=== PATIENT | female | born 1940 | race African-American/Black ===

== ENCOUNTER 2018-10-22 16:31 | Inpatient (IN) ==
[2018-10-22] MEDS ORDERED: NS 1,000 ML IV ONE ×2 (17:39→18:58)
--- NOTE | 2018-10-22 18:01 | Diag Imaging Result Doc PS360 ---
EXAM: CHEST-PORTABLE INDICATION: gi bleed TECHNIQUE: One view COMPARISON: 12/15/2016 FINDINGS: There is evidence of prior granulomatous disease, stable. The lungs are grossly clear. There is no discrete pleural fluid collection or pneumothorax. The cardiomediastinal silhouette and central vasculature are grossly unremarkable. IMPRESSION: No evidence of acute pathology by plain radiograph. Electronically signed by Douglas Victoria 10/22/2018 5:59 PM
[2018-10-22] MEDS ORDERED: PROTONIX 80 MG in NS 80 ML IV ONE (18:02)
[2018-10-22 18:13] LABS: INR 1.02; PROTIME 14.2 Seconds (11.0-16.0)
[2018-10-22 18:14] LABS: PTT 28.4 Seconds (22.3-41.8)
[2018-10-22 18:18] LABS: BASO# 0.02 X1000 (0.0-0.2); BASO% 0.2 % (0.0-0.8); EOS% 0.9 % (0.0-10.0); HEMATOCRIT 31.8 % (37.0-47.0); HEMOGLOBIN 10.3 g/dL (12.0-16.0); IMM GRAN# 0.03 X1000 (0.0-0.04); IMM GRAN% 0.3 % (0.0-0.5); LYMPH# 4.82 X1000 (1.2-3.4); LYMPH% 45.3 % (20.5-51.1); MCH 31.8 PG (27-31); MCHC 32.4 g/dL (33-37); MCV 98.1 FL (81-99); MONO# 0.79 X1000 (0.11-0.59); MONO% 7.4 % (1.7-9.3); MPV 10.7 FL (7.4-10.4); NEUT# 4.88 X1000 (1.4-6.5); NEUT% 45.9 % (42.2-75.2); PLT 239 X1000 (130-400); RBC 3.24 XMIL (4.2-5.4); RDW 13.2 % (11.5-14.5); WBC 10.64 X1000 (4.8-10.8)
[2018-10-22 18:29] LABS: AGAP 12; ALB/GLOB RATIO 1.5; ALBUMIN 4.4 g/dL (3.5-5.0); ALKALINE PHOSPHATASE 58 U/L (32-104); BUN 25 mg/dL (8-22); CHLORIDE 106 mmol/L (98-107); COSMO 290; CREATININE 0.9 mg/dL (0.5-0.9); ESTIMATED GFR > 60; GLUCOSE 108 mg/dL (70-104); GOT 15 U/L (10-30); GPT 12 U/L (10-36); POTASSIUM 3.7 mmol/L (3.5-5.1); SODIUM 143 mmol/L (136-145); TCO2 25 mmol/L (25-35); TOTAL BILIRUBIN 0.26 mg/dL (0.20-1.00); TOTAL PROTEIN 7.3 g/dL (6.3-8.3)
[2018-10-22] MEDS ORDERED: MORPHINE IV PRN (18:58)
[2018-10-22] MEDS ORDERED: ZOFRAN IV PRN (18:58)
--- NOTE | 2018-10-22 18:58 | PROVIDER DOCUMENTATION ---
This chart was entered by Becca Garcia Scribe, acting as scribe for Emeterio Lazar MD. HPI-General Adult - General Chief Complaint: GI Bleed Stated Complaint: VOMITING DR Kalpana PA Time Seen by Provider: 10/22/18 17:36 Source: patient Allergies/Adverse Reactions: Patient Allergies Allergy/AdvReac Type Severity Reaction Status Date / Time codeine AdvReac Intermediate NAUSEA Verified 10/22/18 17:52 Home Medications: Home Medication List Medication Instructions Recorded Confirmed Last Taken Type Pantoprazole [Protonix] 1 tab PO DAILY 12/14/16 12/14/16 12/14/16 History Diphenhyramine/Al&mg Oh/Lido [Mbx 10 ml MT 4XDAY PRN PRN #1 bottle 12/15/16 U nknown Rx Solution] Docusate Sodium [Colace] 100 mg PO BID PRN PRN #20 capsule 12/15/16 Unknown Rx - History of Present Illness -Gen Adult Nature of Presenting Problems: pt is a 78 yr old female presenting with complaint of nausea and vomiting beg inning 1 hr after eating chicken yesterday, pt reports she took a large amount of pepto bismal to help the nausea then had a large black diarrhea stool yesterday and then again today. pt denies any abdominal pain, pt reports hx of peptic ulcer disease and fears she is passing blood in her stool. pt also reports mild cough. Location of Pain/Injury: reports: none Pain Radiation: reports: no radiation Quality of Pain: reports: none Severity: reports: mild Onset/Duration: reports: 24 hours ago Timing: reports: still present Context/Activities at Onset: reports: eating (1 hr after ingesting chicken) Modifying Factors: improves with: other medication (pepto bismal) Associated Symptoms: reports: cough, diarrhea, headaches, nausea, vomiting. denies: dizziness, fever/chills Similar Symptoms Previously?: No Recently seen or treated by another doctor?: No Review of Systems - Adult - REVIEW OF SYSTEMS - ADULT Constitutional: denies: chills, fever Eyes: denies: blurred vision, double vision Ears, Nose, Mouth & Throat: reports: no symptoms reported Cardiovascular: denies: chest pain, palpitations, syncope Respiratory: reports: cough. denies: shortness of breath, wheezing Gastrointestinal: reports: diarrhea, nausea, vomiting, other (black diarrhea). denies: abdominal pain Genitourinary: reports: no symptoms reported Musculoskeletal: reports: no symptoms reported Integumentary: reports: no symptoms reported Neurological: denies: dizziness/vertigo, headache/migraines Psychiatric: reports: no symptoms reported Endocrine: reports: no symptoms reported Hematologic/Lymphatic: reports: no symptoms reported Allergic/Immunologic: reports: no symptoms reported All Other Systems: Reviewed and Negative Past History - Adult - PAST MEDICAL HISTORY-ADULT Review of Records: reports: Old Records Reviewed, Nursing Assessment Review, Medications Reviewed, Social history reviewed & non-contributory. Major Childhood Illnesses: reports: denies history Cardiovascular: reports: denies history Respiratory: reports: denies history Gastrointestinal: reports: GERD Obstetrical/Gynecological: reports: denies history Genitourinary: reports: denies history Musculoskeletal: reports: arthritis Neurological: reports: denies history Endocrine/Immune: reports: denies history Other Conditions: reports: denies history - PRIOR SURGERIES/PROCEDURES Surgical/Procedure History: reports: none - PRIOR HOSPITALIZATIONS Prior Hospitalizations: reports: none - IMMUNIZATION STATUS Childhood Immunizations: See Nurse Assessment Flu Vaccine: See Nurse Assessment - FAMILY HISTORY Family History: reviewed, not pertinent - SOCIAL HISTORY Smoking: denies Substance Use: alcohol Alcohol Use Frequency: occasionally Living Situation: family Physical Exam-General - PHYSICAL EXAM-ADULT Initial Vital Signs Reviewed: Yes - CONSTITUTIONAL General Appearance: appears well, alert, no apparent distress - EYES Eyes: other (arcus senills) - HEAD, EARS, NOSE, MOUTH & THROAT HENMT: normocephalic/atraumatic. negative: moist mucous membranes (dry oral mucosa) - NECK Neck: non-tender, full range of motion, supple, normal inspection - RESPIRATORY Respiratory: chest non-tender, lungs clear, normal breath sounds - CARDIOVASCULAR Cardiovascular: normal peripheral pulses, tachycardia - GASTROINTESTINAL (ABDOMEN) Abdominal Exam: normal bowel sounds, non tender, soft - GENITOURINARY Rectal Exam: normal exam, normal rectal tone. negative: black stool, blood streaked stool, hemorrhoids, tenderness - LYMPHATIC Lymphatic: no adenopathy - MUSCULOSKELETAL Back Exam: normal inspection, no CVA tenderness, no vertebral tenderness Extremity: normal range of motion, non-tender, normal gait, normal inspection - SKIN Integumentary: normal color, normal turgor, warm/dry - NEUROLOGIC Neurologic: grossly normal, no motor/sensory deficits - PSYCHIATRIC Psych/Mental Status: normal mood/affect Progress - PLAN OF CARE/RESULTS Progress/Plan/Lab Results: Vital Signs - 8 hr 10/22/18 16:35 Temperature 98.0 F Pulse Rate 112 H Respiratory Rate 18 Blood Pressure 102/62 O2 Sat by Pulse Oximetry 95 Laboratory Results - last 24 hr 10/22/18 16:55 PT 14.2 INR 1.02 PTT (Actin FS) 28.4 Orders Category Date Time Status Cardiac Monitoring DIRECTED Care 10/22/18 17:37 Active Nursing- Obtain EKG once Care 10/22/18 17:37 Active Saline Loc NOW Care 10/22/18 17:37 Active CHEST-PORTABLE [RAD] Stat Exams 10/22/18 17:39 Completed CBC WITH ELECTRONIC DIFF [HEME] Stat Lab 10/22/18 16:55 Results COMPREHENSIVE METABOLIC PANEL [CHEM] Stat Lab 10/22/18 16:55 Received LACTATE, PLASMA [CHEM] Stat Lab 10/22/18 17:38 Uncollected OCCULT BLOOD SCREENING [STOOL] Stat Lab 10/22/18 17:38 Uncollected PROTIME WITH INR [COAG] Stat Lab 10/22/18 16:55 Completed PTT [COAG] Stat Lab 10/22/18 16:55 Completed TYPE & SCREEN [BBK] Stat Lab 10/22/18 16:55 Received URINALYSIS W/POSS RFLX CULT [URINALYSIS] Stat Lab 10/22/18 17:38 Uncollected 0.9% Sodium Chloride Inj [Ns] 1,000 ml Med 10/22/18 17:39 Active IV 999 mls/hr Pantoprazole [Protonix] 80 mg Med 10/22/18 18:02 Active 0.9% Sodium Chloride Inj [Ns] 80 ml IV NOW EKG [EKG] Stat Ther 10/22/18 17:38 Ordered Result Diagrams: 10/22/18 16:55 10/22/18 16:55 - EKG 1 Time of EKG reading by physician:: 16:58 EKG Read and Signed by:: Emeterio Lazar EKG Interpretation (*Must complete 3 of following elements*): Abnormal (early transitions) Rate: 101 Rhythm: sinus tachycardia - XRAY 1 XRAY Study: Chest Impression: Abnormal ( Signed EXAM: CHEST-PORTABLE INDICATION: gi bleed TECHNIQUE: One view COMPARISON: 12/15/2016 FINDINGS: There is evidence of prior granulomatous disease, stable. The lungs are grossly clear. There is no discrete pleural fluid collection or pneumothorax. The cardiomediastinal silhouette and central vasculature are grossly unremarkable. IMPRESSION: No evidence of acute pathology by plain radiograph. Electronically signed by Douglas Victoria 10/22/2018 5:59 PM 10/22/181758 Interpreting Physician: Douglas Victoria MD Dictated Date/Time: 10/22/181758 cc: Emeterio Lazar MD; Eugene Bryan MD) Comparison with other Films: no changes (12/15/16) - CONSULTS/PCP/HOSPITALIST Notification #1 *Consult/PCP/Hospitalist*: [place] Time Discussed: 18:57 Consult Disposition: Will see in ED Departure - Departure Date of Disposition Decision: 10/22/18 Time of Disposition Decision: 18:57 DIAGNOSIS: Anemia due to blood loss, acute GI bleeding Qualifiers: GI bleed type/associated pathology: melena Qualified Code(s): K92.1 - Melena Disposition: ADMITTED INPATIENT 09 Certified Medical Emergency: Emergent Condition: Fair Referrals and Follow-Ups: Eugene Bryan MD [Primary Care Provider] - - Critical Care Note This patient required my direct & personal management of CC.: No Attestation - Physician/ [place] Attestation Patient care was provided by Advanced Practice Provider:: No The physician spent face to face time with patient:: Yes Advanced Practice Provider documentation review:: Supervising physician onsite and consulted in the evaluation and care of this patient. The physician did have a face to face encounter with the patient. This chart was documented by the indicated scribe, (Becca Garcia Scribe) and accurately reflects the services I performed and decisions made by me, Emeterio Lazar MD, as attested by the provider's signature.
[2018-10-22 20:43] LABS: URINE SOURCE CLEAN CATCH
[2018-10-22 20:47] LABS: BILIRUBIN URINE NEGATIVE (NEGATIVE); BLOOD URINE NEGATIVE (NEGATIVE); COLOR YELLOW; GLUCOSE URINE NEGATIVE (NEGATIVE); KETONE URINE NEGATIVE (NEGATIVE); LEUKOCYTES URINE MODERATE (NEGATIVE); NITRITE URINE NEGATIVE (NEGATIVE); PH URINE 5.5; PROTEIN URINE NEGATIVE (NEGATIVE); TURBIDITY URINE CLEAR (CLEAR); UROBILINOGEN URINE NORMAL (NORMAL)
[2018-10-22 20:49] LABS: UR EPITHELIAL CELLS <10 /HPF (<10); URINE BACTERIA NEGATIVE /HPF; URINE RBC <10 /HPF (<10); URINE WBC <10 /HPF (<10)
--- NOTE | 2018-10-22 21:31 | HISTORY AND PHYSICAL ---
Admitting to Dr. Eugene Bryan. CHIEF COMPLAINT: Threw up some tea colored vomitus and then had black bowel movements. HISTORY OF PRESENT ILLNESS: The patient is an 78-year-old, female, who apparently had some chicken last night, and threw up. She had also had some Pepto Bismol. When she threw up, there was some brownish looking material that she called tea-colored and thought it might be from tea that she was drinking. She later had some black tarry stools and came to the emergency room. She has not had any abdominal pain with this. She does take occasional over the counter NSAIDs and is supposed to be taking a proton pump inhibitor but does not always take it. When the emergency room doctor looked at her, he noticed black stools, but noted some red blood with it. I did another rectal exam. Did not get much stool back, but got just a little bit and we will send that for Hemoccult testing. PAST MEDICAL HISTORY: Patient has had surgery for tonsillectomy. She has had a hysterectomy. She denies any allergies. She has 9 children. One daughter had breast cancer. One son had some sort of GI cancer that she does not know all the details with. Apparently codeine causes nausea for her. She denies being anemic in the past. REVIEW OF SYSTEMS: Neurological: Denies headaches, seizures, visual problems, hearing problems. Pulmonary: Denies cough, wheezing, dyspnea. Cardiovascular: Denies chest pain, heart palpitations, PND, orthopnea. GI: See present illness. Has thrown up some tea colored, which may be the same as coffee-ground material and then had some black tarry stools. Denies any abdominal pain. Actually had some of these black stools last night. Endocrine: Denies diabetes, thyroid problems or pituitary problems. Psychiatric: The patient has been very anxious. She has been upset about some of her neighbors and neighbor that brings her dog over to her yard and that has been disconcerting for her. Musculoskeletal: She does possibly have a little arthritis. Does take some [id number] NSAIDs on occasion. PHYSICAL EXAMINATION: VITAL SIGNS: Temperature is 98 degrees Fahrenheit. Pulse 112 and regular. Respirations 18, blood pressure 102/62. HEENT: She is normocephalic. EOMS intact. PERRLA. Throat clear. Fundi benign. NECK: Supple without thyromegaly, without adenopathy or carotid bruits. LUNGS: Sound clear to auscultation and percussion without rhonchi, rales, or wheezes. HEART: Sinus tachycardia without murmurs, gallops, or friction rubs. ABDOMEN: Soft with active bowel sounds. No organomegaly or tenderness. PELVIC: Exam deferred. BREAST EXAM: Deferred. RECTAL EXAM: Got very little stool. Did not see any black when I did this. It was brownish- greenish in very small amounts. Did put this on Hemoccult card and have sent it to lab. LABORATORY: Shows a white count 10,640, hemoglobin 10.3, hematocrit 31.8. Chemistry profile is essentially normal. Occult blood was positive. Chest x-ray showed no acute findings. ASSESSMENT: 1. Probable upper gastrointestinal bleed. 2. Anemia. PLAN: We will treat with proton pump inhibitors. At this time, we will hold off doing an NG-tube as she seems to be comfortable. Will consult GI. cc: MD Eugene Gomez Jr, MD
[2018-10-23 02:10] LABS: HEMATOCRIT 25.8 % (37.0-47.0); HEMOGLOBIN 8.2 g/dL (12.0-16.0)
[2018-10-23 06:37] LABS: AGAP 9; BUN 13 mg/dL (8-22); CALCIUM 9.4 mg/dL (8.8-10.2); CHLORIDE 112 mmol/L (98-107); COSMO 287; CREATININE 0.6 mg/dL (0.5-0.9); ESTIMATED GFR > 60; GLUCOSE 93 mg/dL (70-104); POTASSIUM 3.8 mmol/L (3.5-5.1); SODIUM 144 mmol/L (136-145); TCO2 23 mmol/L (25-35)
--- NOTE | 2018-10-23 06:51 | PROGRESS NOTE ---
DATE: 10/23/2018 An 78-year-old, patient admitted with hematemesis and melanotic stool. There was also some fresh blood in the stool. The patient had mild epigastric discomfort. The patient claims her symptoms started after she ate some chicken. No major abdominal pain. No high-grade fever. The patient did have some chills. Since admission, the patient denied any nausea or vomiting. No bleeding per rectum. Denied any typical chest pain or palpitation. No dysuria or hematuria. The patient does have arthritic pain in her knee. No unusual cough or expectoration. Denied any leg swelling. Admission history physical noted. PAST MEDICAL HISTORY: Significant for gastritis and reflux disease, osteoarthritis, hypercalcemia, hyperparathyroidism. PHYSICAL EXAMINATION: Vital Signs: Blood pressure 108/54, pulse 94, respiration 18, temperature 97.9 degrees. Skin: Senile turgor. Neck: Supple. No JVD. Lungs: Bilateral good air entry present. No rales. Cardiovascular: S1 and S2 heard. No gallop or thrill. Abdomen: Soft. No distention. Bowel sounds present. Extremities: No cyanosis, clubbing. No acute DVT. ELECTRONIC INSTRUMENT TRADES WORKER: Alert, awake able to move all 4 limbs. LAB DATA: Done on admission noted. Her repeat hemoglobin 8.2 hematocrit 25.8. The a.m. lab is pending. Urinalysis did reveal moderate leukocyte. Urine culture is pending. CONSIDERATION: GI bleed most likely due to gastritis, and reflux disease. Possibility of diverticulosis cannot be ruled out. Osteoarthritis, questionable UTI. The patient does have hyperparathyroidism. PLAN: Continue proton pump inhibitor. Patient will have GI evaluation. We will follow a.m. labs. Monitor hemoglobin and hematocrit. Symptomatic treatment. Overall plan discussed with the patient and family. They are in agreement. cc: Eugene Bryan MD
[2018-10-23 06:53] LABS: BASO# 0.03 X1000 (0.0-0.2); BASO% 0.3 % (0.0-0.8); EOS# 0.23 X1000 (0.0-0.7); EOS% 2.3 % (0.0-10.0); HEMATOCRIT 25.7 % (37.0-47.0); IMM GRAN# 0.02 X1000 (0.0-0.04); IMM GRAN% 0.2 % (0.0-0.5); LYMPH# 4.19 X1000 (1.2-3.4); LYMPH% 42.7 % (20.5-51.1); MCH 31.1 PG (27-31); MCHC 31.1 g/dL (33-37); MONO# 0.68 X1000 (0.11-0.59); MONO% 6.9 % (1.7-9.3); MPV 10.1 FL (7.4-10.4); NEUT# 4.67 X1000 (1.4-6.5); NEUT% 47.6 % (42.2-75.2); PLT 185 X1000 (130-400); RBC 2.57 XMIL (4.2-5.4); RDW 13.2 % (11.5-14.5); WBC 9.82 X1000 (4.8-10.8)
[2018-10-23 08:17] LABS: HEMATOCRIT 26.3 % (37.0-47.0); HEMOGLOBIN 8.2 g/dL (12.0-16.0)
--- NOTE | 2018-10-23 08:21 | EKG Report ---
Test Performed on : 10/22/2018 4:44:41 PM Test Reason : tachycardic Blood Pressure : / mmHG Vent. Rate : 101 BPM Atrial Rate : 101 BPM P-R Int : 152 ms QRS Dur : 084 ms QT Int : 336 ms P-R-T Axes : 055 020 071 degrees QTc Int : 435 ms Sinus tachycardia. Otherwise normal ECG When compared with ECG of 28-MAY-2016 23:00, No significant change was found Unconfirmed Result
[2018-10-23 14:23] LABS: HEMATOCRIT 27.5 % (37.0-47.0); HEMOGLOBIN 8.6 g/dL (12.0-16.0)
--- NOTE | 2018-10-23 15:13 | GASTROENTEROLOGY CONSULTATION ---
DATE: 10/23/2018 REASON FOR CONSULTATION: Melena, hematemesis. HISTORY OF PRESENT ILLNESS: The patient reports onset of symptoms on Sunday. She states she had episode of nausea and vomiting that was black in color after eating some chicken. She denied any significant abdominal pain. No reported fever. She did report some mild chills. She had actually brought in a sample of what she had vomited in a plastic bag with a wash rag, and it was black in color. Per our records, she was last seen in 2017. She had an EGD and colonoscopy on 12/26/2017 that showed diverticulosis with no colon polyps, reflux esophagitis, or gastritis. PAST MEDICAL HISTORY: GERD, osteoarthritis, hyperparathyroidism, hypercalcemia. PAST SURGICAL HISTORY: Appendectomy, cholecystectomy, hysterectomy, EGD and colonoscopy in 12/2017. ALLERGIES: Codeine causing nausea. HOME MEDICATIONS: MBX solution 4 times a day as needed, Colace 100 mg twice a day as needed, Protonix daily which she states she does not take on a daily basis. SOCIAL HISTORY: No reported tobacco use. At the time of our evaluation in 2017, she would drink wine or beer on occasion. She is . She has 9 children. REVIEW OF SYSTEMS: Per history of present illness. PHYSICAL EXAMINATION: Vital Signs: Temperature 97.6 degrees, pulse 77, respirations 18, blood pressure 132/61. General: The patient is awake, alert, in no acute distress. Respiratory: Lung sounds are clear bilaterally. Cardiovascular: Regular rate and rhythm. Abdomen: Soft. Positive bowel sounds. Nontender. Neurological: Cranial nerves II through XII grossly intact. The patient is awake, alert, and oriented to person, place, and time. Extremities: No lower extremity edema noted. She has SCD hose in place. LABORATORY DATA: Hematology: WBC 9.82, hemoglobin 8.0, hematocrit 25.7, MCV 100.0, platelet 185,000. Coagulation: ProTime 14.2, INR 1.02, PTT 28.4. Chemistry: Sodium 144, potassium 3.8, chloride 112, CO2 of 23, BUN 13, creatinine 0.6, glucose 93. Total bilirubin 0.26, AST 15, ALT 12, alkaline phosphatase 58. IMAGING: Chest x-ray showed no evidence of acute pathology. ASSESSMENT: 1. Melena. 2. Hematemesis. 3. History of gastroesophageal reflux disease. 4. History of nonsteroidal anti-inflammatory drug use. 5. Diverticulosis with last colonoscopy in 12/2017, last esophagogastroduodenoscopy showing esophagitis and gastritis in 12/2017. PLAN: Continue PPI. Will plan to proceed with EGD today since she has been held n.p.o. Due to the patient's age, I have given her the option of symptomatic treatment and watching. She wishes to proceed with EGD procedure. I have discussed benefits versus risks of the procedure. Further plans to be made according to findings. I have discussed this case with Dr. Lezama. Thank you for this consultation. Dictated by SILAS Navarro for Familia Lezama MD cc: SILAS Galeas MD Bharat K. Vakharia, MD [facility] HOSPITALHelen
[2018-10-23] MEDS ORDERED: DIPRIVAN 1% ONE (16:25)
[2018-10-23] MEDS ORDERED: XYLOCAINE-MPF 2% ONE (16:26)
[2018-10-23] MEDS ORDERED: BLISTEX MEDICATED BERRY LIP BALM TOP PRN (17:37)
[2018-10-23] MEDS: ZOFRAN PO SCH (19:44)
--- NOTE | 2018-10-23 19:58 | OPERATIVE NOTE ---
PROCEDURE DATE: 10/23/2018 PROCEDURE: Esophagogastroduodenoscopy. PREOPERATIVE DIAGNOSES: 1. Acute gastrointestinal bleed. 2. Anemia secondary to gastrointestinal bleed. POSTOPERATIVE DIAGNOSES: 1. Esophageal ulcer. 2. Mild gastritis. HISTORY: This is an 78-year-old female admitted to the hospital with history of upper GI bleed. She was found to be anemic. EGD was done for diagnostic as well as therapeutic purposes. DESCRIPTION OF PROCEDURE: Informed consent was obtained from the patient. The procedure, risks, benefits and alternatives were explained in layman's terms she understood. All the pertinent questions were answered. The patient was brought to the endoscopy unit and was premedicated as per Anesthesia. After adequate sedation, while she was lying in left lateral position, the gastroscope was introduced into the posterior pharynx and advanced under direct vision into the esophagus. The esophagus in the upper and middle part was normal. Distal esophagus, right around GE junction which was noted about 39 cm from the incisors, there was a linear ulcer noted with whitish exudate adherent to it, suggestive of recent ulceration or Sadia-Francisco tear which appears to be healing. No active bleeding or stigmata of recent bleed seen. The scope was then passed through the esophagus into the stomach. The stomach was examined with both straight and retroflex view, which revealed normal cardia, fundus and body. In the antrum, mild hyperemia noted in patches suggestive of gastritis, but no active bleeding or stigmata of recent bleed seen. Otherwise, no ulceration, AVM or masses were seen. The scope was then passed through a normal pylorus into the duodenal bulb, and then to the second portion of the duodenum, which appeared to be normal. The scope was then removed. The patient tolerated the procedure well. No complications noted. The patient was then transferred to the recovery area in a stable condition. IMPRESSION: 1. Esophageal ulcer, most likely the source of her bleeding. Appears to be compatible with a Sadia-Francisco tear, which is healing. 2. Mild gastritis. RECOMMENDATIONS: The patient would benefit from proton pump inhibitor. I would start her on Protonix 40 mg every day. In the meantime, recheck hemoglobin and hematocrit, transfuse if necessary. We will start her on full liquid diet, advance as tolerated. cc: MD Eugene Thomson MD
[2018-10-23 20:27] LABS: HEMATOCRIT 26.6 % (37.0-47.0); HEMOGLOBIN 8.3 g/dL (12.0-16.0)
[2018-10-24 02:36] LABS: HEMATOCRIT 27.5 % (37.0-47.0); HEMOGLOBIN 8.7 g/dL (12.0-16.0)
[2018-10-24] MEDS: ZOFRAN PO SCH (04:32)
[2018-10-24 06:55] LABS: BASO# 0.02 X1000 (0.0-0.2); BASO% 0.3 % (0.0-0.8); EOS# 0.27 X1000 (0.0-0.7); EOS% 3.9 % (0.0-10.0); HEMATOCRIT 28.6 % (37.0-47.0); LYMPH# 3.34 X1000 (1.2-3.4); LYMPH% 47.8 % (20.5-51.1); MCH 31.6 PG (27-31); MCHC 31.5 g/dL (33-37); MCV 100.4 FL (81-99); MONO# 0.61 X1000 (0.11-0.59); MONO% 8.7 % (1.7-9.3); MPV 10.9 FL (7.4-10.4); NEUT# 2.75 X1000 (1.4-6.5); NEUT% 39.3 % (42.2-75.2); PLT 176 X1000 (130-400); RBC 2.85 XMIL (4.2-5.4); RDW 12.8 % (11.5-14.5); WBC 6.99 X1000 (4.8-10.8)
[2018-10-24] MEDS ORDERED: PROTONIX PO SCH (07:00)
[2018-10-24 07:14] LABS: HEMOGLOBIN A1C 4.9 % (4.8-6.0)
[2018-10-24 07:27] LABS: AGAP 11; ALB/GLOB RATIO 1.3; ALBUMIN 3.7 g/dL (3.5-5.0); ALKALINE PHOSPHATASE 54 U/L (32-104); BUN 7 mg/dL (8-22); CALCIUM 10.1 mg/dL (8.8-10.2); CHLORIDE 107 mmol/L (98-107); COSMO 277; CREATININE 0.7 mg/dL (0.5-0.9); ESTIMATED GFR > 60; GLUCOSE 83 mg/dL (70-104); GOT 16 U/L (10-30); GPT 9 U/L (10-36); MAGNESIUM 1.9 mg/dL (1.5-2.7); POTASSIUM 3.9 mmol/L (3.5-5.1); SODIUM 140 mmol/L (136-145); TCO2 22 mmol/L (25-35); TOTAL BILIRUBIN 0.34 mg/dL (0.20-1.00); TOTAL PROTEIN 6.6 g/dL (6.3-8.3)
--- NOTE | 2018-10-24 07:27 | DISCHARGE SUMMARY ---
ADMISSION DATE: 10/22/2018 DISCHARGE DATE: FINAL DISCHARGE DIAGNOSES: 1. Upper gastrointestinal bleed secondary to esophageal ulcer. 2. Gastritis. 3. Osteoarthritis. 4. Hypercalcemia. HISTORY: Ms. Whelan is an 78-year-old, patient, admitted with hematemesis, melena. Patient's problems started after she ate some chicken from outside. The patient had nausea and vomiting, also had some melanotic stool. The patient was feeling weak, came to the emergency room. Evaluated by ER physician, admitted for further care. HOSPITAL COURSE: Patient was placed on telemetry bed, started on IV hydration, IV proton pump inhibitor. GI consult obtained with Dr. Lezama. The patient underwent upper GI endoscopy, patient found to have esophageal ulcer. There was possibility of a Sadia-Francisco tear. No active bleeding. Patient's hemoglobin and hematocrit remained stable. Clinically, patient is doing better, eager to go home. DISCHARGE PHYSICAL EXAMINATION: Vital signs: No fever or chills. Vital signs remained stable. Neck: Supple. No JVD. Lungs: Clear. Heart: Regular. Abdomen: Soft, nontender. Bowel sounds present. RECREATION THERAPIST: Alert, awake, able to move all 4 limbs. LABORATORY DATA: Done this morning noted. Hemoglobin 9, hematocrit 28.6, WBC count 6.99, platelet count 176,000. DISCHARGE INSTRUCTIONS: An endoscopy results reviewed, discussed with patient and family. Advised patient to avoid NSAID. Continue proton pump inhibitor daily. Icar-C daily. Follow up with me in a week. Follow up with flying squad worker as scheduled. In case of more distress, call us back or go to the emergency room. Overall, discharge condition satisfactory. In case of more bleeding, nausea, vomiting, abdominal pain, or dizziness call us back or go to emergency room. cc: Eugene Bryan MD
[2018-10-24 07:41] VITALS: BP 95/63
== END 2018-10-24 10:22 | disposition home or self-care (01) | DRG 381 ==
LOC: ED 16:31 → EDIPHOLD 20:22 → 4N 21:35
PROVIDERS: ADMIT Internal Medicine; ATTEND Internal Medicine
CPT/HCPCS: 71010; 71045; 80048; 80053; 81001; 82270; 83036; 83605; 83735; 85014; 85018; 85025; 85610; 85730; 86850; 86900; 86901; 87088; 93005; 96361; 96365; 99285; A9270; C9113; J7030; S0164